=== PATIENT | female | born 1970 | race American Indian/Alaskan Native ===

== ENCOUNTER 2016-07-19 00:05 | Emergency (ER) | payer MEDICAID ==
[2016-07-19 00:32] VITALS: BMI 36.2
[2016-07-19 00:34] VITALS: TEMP 98.4; O2SAT 98
--- NOTE | 2016-07-19 00:52 | ED PDOC ---
Arrival/HPI - General Chief Complaint: Upper Extremity Problem/Injury Time Seen by Provider: 07/19/16 00:46 - History of Present Illness Narrative History of Present Illness (Text): 07/19/16 00:49 Gavi Mcgovern is a 45 year old female who presents to the emergency department complaining of right shoulder pain tonight. Patient denies any history of recent trauma/fall and notes some decreased range of motion secondary to pain. Patient denies any chest pain, shortness of breath, back pain, weakness/numbness /tingling in the extremity, or any other complaints. Time/Duration: Other (tonight) Symptom Onset: Gradual Symptom Course: Unchanged Activities at Onset: Rest, Light Context: Home Past Medical History - Provider Review Nursing Documentation Reviewed: Yes - Past History Past History: No Previous - Infectious Disease Hx of Infectious Diseases: None - Tetanus Immunization Tetanus Immunization: Unknown - Past Medical History Past Medical History: Non-Contributing - Endocrine/Metabolic Hx Endocrine Disorders: Yes Hx Hypothyroidism: Yes - Psychiatric Hx Substance Use: No - Surgical History Hx Tonsillectomy: Yes Other/Comment: fibroid removal Family/Social History - Physician Review Nursing Documentation Reviewed: Yes Family/Social History: No Known Family HX Smoking Status: Never Smoked Hx Alcohol Use: Yes Hx Substance Use: No Allergies/Home Meds Allergies/Adverse Reactions: Allergies No Known Allergies Allergy (Verified 08/28/15 23:46) Home Medications: Home Meds Medication Instructions Recorded Confirmed Levothyroxine [Synthroid] 50 mcg PO DAILY 08/28/15 07/19/16 Review of Systems - Physician Review All systems were reviewed & negative as marked: Yes - Review of Systems Constitutional: Normal. absent: Fevers Eyes: Normal ENT: Normal Respiratory: Normal. absent: SOB, Cough Cardiovascular: Normal. absent: Chest Pain Gastrointestinal: Normal. absent: Abdominal Pain, Diarrhea, Nausea, Vomiting Genitourinary Female: Normal. absent: Dysuria, Frequency, Hematuria, Urine Output Changes Musculoskeletal: Arthralgias (+right shoulder pain). absent: Back Pain, Neck Pain Skin: Normal Neurological: Normal Endocrine: Normal Hemo/Lymphatic: Normal Psychiatric: Normal Physical Exam Vital Signs Reviewed: Yes Vital Signs Temp Pulse Resp BP Pulse Ox 07/19/16 03:37 68 20 126/80 98 07/19/16 00:33 98.4 F 76 18 119/77 98 Temperature: Afebrile Blood Pressure: Normal Pulse: Regular Respiratory Rate: Normal Appearance: Positive for: Well-Appearing, Non-Toxic, Comfortable Pain Distress: None Mental Status: Positive for: Alert and Oriented X 3 - Systems Exam Head: Present: Atraumatic, Normocephalic Pupils: Present: PERRL Extroacular Muscles: Present: EOMI Conjunctiva: Present: Normal Mouth: Present: Moist Mucous Membranes Neck: Present: Normal Range of Motion Respiratory/Chest: Present: Clear to Auscultation, Good Air Exchange. No: Respiratory Distress, Accessory Muscle Use Cardiovascular: Present: Regular Rate and Rhythm, Normal S1, S2. No: Murmurs Upper Extremity: Present: NORMAL PULSES, Tenderness (Right shoulder tenderness to palpation, pain with any attempt at right shoulder abduction), Neurovascularly Intact, Capillary Refill < 2s. No: Cyanosis, Edema, Swelling, Erythema, Temperature Abnormalties Neurological: Present: GCS=15, CN II-XII Intact, Speech Normal Skin: Present: Warm, Dry, Normal Color. No: Rashes Psychiatric: Present: Alert, Oriented x 3, Normal Insight, Normal Concentration Medical Decision Making ED Course and Treatment: 07/19/16 00:49 Impression: 46 year old female complaining of right shoulder pain tonight. Differential Diagnosis included but are not limited to: calcific bursitis vs. strain Plan: -- XR Right Shoulder -- Percocet -- Toradol -- Reassess and disposition Progress Notes: 07/19/16 01:59 Reviewed radiology, XR Right shoulder shows no acute fracture.Calcifications noted. 07/19/16 03:33 On reevaluation, the patient with complete relief of symptoms following medication and is in no acute distress. I have discussed the results and plan with the patient, who expresses understanding. Patient given the opportunity to ask question, all questions were answered and there is agreement with the plan to discharge the patient home. Patient is stable for discharge. Patient was instructed to follow up with physician/clinic in 1-2 days or return if symptoms persist/worsen or new concerning symptoms arise. - RAD Interpretation Radiology Orders: 07/19/16 00:54 SHOULDER RIGHT [RAD] Stat Bundles Hanger: ED Physician - Medication Orders Current Medication Orders: Discontinued Medications Ketorolac Tromethamine (Toradol) 60 mg IM ONCE ONE Stop: 07/19/16 00:56 Last Admin: 07/19/16 01:18 Dose: 60 mg Re-Assess: [facility] Pain Assessment Document 07/19/16 02:18 OCS (Rec: 07/19/16 03:37 OCS [id number]) Pain Reassessment Is this a pain reassessment? Yes Sleep Is patient sleeping during reassessment? Yes Oxycodone/Acetaminophen (Percocet 5/325 Mg Tab) 1 tab PO STAT STA Stop: 07/19/16 00:56 Last Admin: 07/19/16 01:18 Dose: 1 tab Re-Assess: [facility] Pain Assessment Document 07/19/16 02:08 OCS (Rec: 07/19/16 03:37 OCS [id number]) Pain Reassessment Is this a pain reassessment? Yes Sleep Is patient sleeping during reassessment? No - Scribe Statement The provider has reviewed the documentation as recorded by the Scribe Pao Rose Provider Attestation: All medical record entries made by the Scribe were at my direction and personally dictated by me. I have reviewed the chart and agree that the record accurately reflects my personal performance of the history, physical exam, medical decision making, and the department course for this patient. I have also personally directed, reviewed, and agree with the discharge instructions and disposition. Disposition/Present on Arrival - Present on Arrival Any Indicators Present on Arrival: No History of DVT/PE: No History of Uncontrolled Diabetes: No Urinary Catheter: No History of Decub. Ulcer: No History Surgical Site Infection Following: None - Disposition Have Diagnosis and Disposition been Completed?: Yes Diagnosis: Shoulder bursitis Disposition: HOME/ ROUTINE Disposition Time: 03:29 Patient Plan: Discharge Condition: GOOD Discharge Instructions (ExitCare): Shoulder Bursitis (ED) Additional Instructions: Take meds as prescribed/follow up with the orthopedist this week Prescriptions: oxyCODONE/Acetaminophen [Percocet 5/325 mg Tab] 1 ea PO Q6 PRN #16 tab PRN Reason: Pain, Moderate (4-7) Referrals: Sergo Price MD [Staff Provider] - Follow up with primary
[2016-07-19] MEDS ORDERED: Oxycodone/Acetaminophen 5/325 mg Tab PO STA (00:55)
[2016-07-19 03:38] VITALS: BP 126/80; PULSE 68; RESP 20
--- NOTE | 2016-07-19 09:12 | RAD ---
PROCEDURE: Radiographs of the Right Shoulder HISTORY: pain COMPARISON: No prior. FINDINGS: BONES: No dislocation. JOINTS: Glenohumeral and acromioclavicular joints preserved. SOFT TISSUES: Calcific/ossific densities in the lateral aspect of the right humeral head could be from calcific tendinosis. OTHER FINDINGS: None. 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 Please note that ligamentous and tendinous pathology is optimally evaluated on MRI. MRI can be obtained if the pain persists.
== END 2016-07-19 03:42 | disposition home or self-care (01) ==
LOC: ED 00:05
DX: M75.51 Bursitis of right shoulder (principal)
CPT/HCPCS: 73030; 96372; 99283; J1885